=== PATIENT | female | born 1965 | race African-American/Black ===

== ENCOUNTER 2018-03-24 00:10 | Emergency (ER) | payer OTHER ==
[~2018-03-24] VITALS: Ht 157.5 cm; Wt 82.0 kg
[~2018-03-24 00:10] MED LIST: ASPI-1158; PRAV40TA
[2018-03-24] MEDS ORDERED: KETOROLAC 15MG/ML VIAL IM ONE (06:45)
[2018-03-24 07:31] VITALS: BP 154/77
== END 2018-03-24 07:39 | disposition home or self-care (01) ==
LOC: ER 00:10
DX: M77.32 Calcaneal spur, left foot (principal); M79.672 Pain in left foot; J45.909 Unspecified asthma, uncomplicated; E78.00 Pure hypercholesterolemia, unspecified; Z79.82 Long term (current) use of aspirin; Z90.710 Acquired absence of both cervix and uterus
CPT/HCPCS: 73630; 96372; 99283; J1885

== ENCOUNTER 2018-11-08 13:52 | Emergency (ER) | payer MEDICAID, OTHER ==
[~2018-11-08] VITALS: Ht 157.5 cm; Wt 82.0 kg
[2018-11-08] MEDS ORDERED: ASPIRIN 81MG TABLET PO ONE (15:30)
[2018-11-08] MEDS ORDERED: NITROGLYCERIN 0.4MG TABLET SL SL PRN (15:30)
[2018-11-08 15:46] LABS: BASOPHILS % 0.6 % (0.0-2.0); EOSINOPHILS % 1.6 % (0.0-5.0); HEMATOCRIT. 38.5 % (36.0-48.0); HEMOGLOBIN. 13.2 g/dL (12.0-16.0); LYMPHOCYTES % 32.2 % (20.0-50.0); MEAN CORPUSCULAR HEMOGLOBIN 29.4 pg (28.0-32.0); MEAN CORPUSCULAR VOLUME 85.9 fL (81.0-99.0); MONOCYTES % 8.7 % (2.0-8.0); NEUTROPHILS % 56.9 % (40.0-76.0); PLATELET 185 x1000/uL (130-400); RED BLOOD CELL COUNT 4.49 mill/uL (4.2-5.4); RED CELL DISTRIBUTION WIDTH 13.3 % (11.6-14.6)
[2018-11-08 15:50] LABS: CHLORIDE 109 mEq/L (98-107)
[2018-11-08 15:56] LABS: D-DIMER 0.38 mg/L FEU (<0.50); PARTIAL THROMBOPLASTIN TIME 24.9 sec (23.4-31.0); PROTHROMBIN TIME 10.6 sec (9.6-11.0)
[2018-11-08 20:42] VITALS: BP 160/86
== END 2018-11-08 20:43 | disposition short-term general hospital (02) ==
LOC: ER 13:52 → CANBEDREQ 20:20 → ER 20:43
DX: R07.89 Other chest pain (principal); E78.00 Pure hypercholesterolemia, unspecified; J45.909 Unspecified asthma, uncomplicated; N81.10 Cystocele, unspecified; Z88.5 Allergy status to narcotic agent; Z79.82 Long term (current) use of aspirin
CPT/HCPCS: 36415; 71045; 83880; 84484; 85379; 93005; 99285

== ENCOUNTER 2024-06-19 15:27 | Emergency (ER) | payer MEDICAID, OTHER ==
[~2024-06-19] VITALS: Ht 157.5 cm; Wt 76.7 kg
[~2024-06-19 15:27] MED LIST changes: -ASPI-1158; +ASPI-1406
[2024-06-19 15:37] VITALS: O2SAT 99
[2024-06-19 16:25] LABS: BASOPHILS % 0.5 % (0.0-2.0); EOSINOPHILS % 0.9 % (0.0-5.0); HEMATOCRIT. 38.7 % (36.0-48.0); HEMOGLOBIN. 12.9 g/dL (12.0-16.0); LYMPHOCYTES % 26.6 % (20.0-50.0); MEAN CORPUSCULAR HEMOGLOBIN 29.6 pg (28.0-32.0); MEAN CORPUSCULAR HGB CONC 33.3 g/dL (31.0-37.0); MEAN CORPUSCULAR VOLUME 88.7 fL (81.0-99.0); MEAN PLATELET VOLUME 9.2 fl (7.4-10.4); MONOCYTES % 7.1 % (2.0-8.0); NEUTROPHILS % 64.9 % (40.0-76.0); PLATELET 192 x1000/uL (130-400); RED BLOOD CELL COUNT 4.36 mill/uL (4.2-5.4); RED CELL DISTRIBUTION WIDTH 13.1 % (11.6-14.6); WHITE BLOOD COUNT 7.4 x1000/uL (4.5-11.0)
[2024-06-19 16:32] LABS: CARBON DIOXIDE 29 mEq/L (21-32); CHLORIDE 104 mEq/L (98-107); POTASSIUM 3.4 mEq/L (3.5-5.1); SODIUM 140 mEq/L (136-145)
[2024-06-19 16:33] LABS: CALCIUM 9.4 mg/dL (8.7-10.4)
[2024-06-19] MEDS: KETOROLAC 30MG/ML VIAL IV ONE (16:34)
[2024-06-19] MEDS: METOCLOPRAMIDE HCL 10MG/2ML VIAL IV ONE (16:34)
[2024-06-19] MEDS: ACETAMINOPHEN 325MG TABLET PO ONE (16:34)
[2024-06-19 16:37] LABS: CREATININE 0.9 mg/dL (0.6-1.0)
[2024-06-19 16:38] LABS: GLUCOSE 99 mg/dL (70-105); UREA NITROGEN BLOOD 14 mg/dL (9-23)
[2024-06-19 16:39] LABS: TROPONIN I HIGH SENSITIVITY 9 ng/L (3.0-34)
[2024-06-19 16:46] LABS: ETHANOL BLOOD < 10 mg/dL (<10)
[2024-06-19 17:41] VITALS: BP 117/55; PULSE 63; RESP 16; TEMP 36.7; O2SAT 98
[2024-06-20] MEDS ORDERED: IOHEXOL-350 100 ML BOTTLE ONE (00:05)
== END 2024-06-19 17:49 | disposition home or self-care (01) ==
LOC: ER 15:27
DX: G43.909 Migraine, unspecified, not intractable, without status migrainosus (principal); E11.9 Type 2 diabetes mellitus without complications; E78.00 Pure hypercholesterolemia, unspecified; I10 Essential (primary) hypertension; J45.909 Unspecified asthma, uncomplicated; Z79.82 Long term (current) use of aspirin; Z79.899 Other long term (current) drug therapy
CPT/HCPCS: 80048; 80320; 85025; 85610; 84484; 36415; 71045; 70496; 70498; 70450; 93005; 96374; 96375; 99285; Q9967; J1885; J2765; Z7610 ×2; G0480